=== PATIENT | female | born 1965 | race Caucasian/White ===

== ENCOUNTER 2019-07-29 04:16 | Emergency (ER) | payer BC, OTHER ==
[2019-07-29 04:30] VITALS: TEMP 97.8
[2019-07-29] MEDS ORDERED: HYDROcodone/APAP 5-325MG 1 EACH TAB PO STA (05:02)
[2019-07-29] MEDS ORDERED: IBUPROFEN 600 MG TAB PO STA (05:02)
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
[2019-07-29 06:40] VITALS: BP 160/99; PULSE 80; RESP 17
== END 2019-07-29 06:39 | disposition home or self-care (01) ==
LOC: EC 04:16
DX: S09.90XA Unspecified injury of head, initial encounter (principal); F41.9 Anxiety disorder, unspecified; F32.9 Major depressive disorder, single episode, unspecified; I10 Essential (primary) hypertension; F17.200 Nicotine dependence, unspecified, uncomplicated; Z79.02 Long term (current) use of antithrombotics/antiplatelets; Z79.899 Other long term (current) drug therapy; Z88.2 Allergy status to sulfonamides; Y04.0XXA Assault by unarmed brawl or fight, initial encounter
CPT/HCPCS: 70450; 72125; 93005; 99284

== ENCOUNTER 2019-10-05 01:13 | Emergency (ER) | payer BC, OTHER ==
[2019-10-05 01:41] LABS: Basophils % (A) 0 %; Eosinophils # (A) 0.2 k/uL (0-0.7); Eosinophils % (A) 3 %; HCT 38.1 % (34.0-46.0); HGB 12.9 gm/dL (11.4-16.0); Lymphocytes # (A) 3.4 k/uL (1.0-4.8); Lymphocytes % (A) 46 %; MCH 28.9 pg (25.0-35.0); MCHC 33.7 g/dL (31.0-37.0); MCV 85.7 fL (80.0-100.0); Mean Platelet Volume 7.8; Monocytes # (A) 0.3 k/uL (0-1.0); Monocytes % (A) 4 %; Neutrophils # (A) 3.3 k/uL (1.3-7.7); Neutrophils % (A) 45 %; Platelet Count 198 k/uL (150-450); RBC 4.45 m/uL (3.80-5.40); WBC 7.3 k/uL (3.8-10.6)
--- NOTE | 2019-10-05 01:43 | XR ---
EXAMINATION TYPE: XR chest 2V DATE OF EXAM: 10/05/2019 COMPARISON: NONE HISTORY: Chest pain TECHNIQUE: FINDINGS: There is no heart failure nor confluent pneumonic infiltrate. Costophrenic angles are clear . There are chest leads. Bony thorax is intact. IMPRESSION: No active cardiopulmonary disease.
[2019-10-05] MEDS ORDERED: NITROGLYCERIN OINT 1 INCH/GM PACKET TOPICAL STA (01:49)
[2019-10-05] MEDS ORDERED: MORPHINE SULFATE 4 MG/ML SYRINGE IV STA (01:49)
[2019-10-05 02:03] LABS: Albumin 3.8 g/dL (3.5-5.0); Calcium 8.9 mg/dL (8.4-10.2); Magnesium 1.9 mg/dL (1.6-2.3); Potassium 3.4 mmol/L (3.5-5.1); Total Bilirubin 0.3 mg/dL (0.2-1.3); Total Protein 6.2 g/dL (6.3-8.2)
[2019-10-05 02:05] VITALS: RESP 16
[2019-10-05 02:09] LABS: INR 0.9 (<1.2); Partial Thromboplastin Time 22.6 sec (22.0-30.0); Prothrombin Time 9.5 sec (9.0-12.0)
--- NOTE | 2019-10-05 02:49 | CT ---
EXAMINATION TYPE: CT angio thor/abd pel aorta DATE OF EXAM: 10/05/2019 COMPARISON: None HISTORY: Chest/Back Pain, R/O AAA CT DLP: 1233.40 mGycm Automated exposure control for dose reduction was used. CONTRAST: Performed with IV Contrast, patient injected with 100 mL of Isovue 370. Multiple axial sections were obtained from the thoracic inlet to the floor the pelvis without and sub sequently with intravenous contrast. There are 3-D post processed images. There is no mediastinal adenopathy. There are no hilar masses. Heart size is normal. There is no pina cardial effusion. Thoracic aorta is intact without evidence of aneurysm or dissection. There are no f illing defects in the pulmonary arteries. There is mild pulmonary emphysema. There is minimal subpleural interstitial density in the lungs. No suspicious pulmonary mass. Liver spleen stomach pancreas gallbladder appear normal. Bile ducts are not dilated. There is no adre nal mass. Kidneys show satisfactory contrast opacification. There is no hydronephrosis. Bladder diste nds smoothly. There is no evidence of a pelvic mass. There is no free fluid in the pelvis. There is n o evidence of thickened appendix. There is no mesenteric edema. There is no ascites or free air. There is normal contrast opacification of the abdominal aorta. There is mild atherosclerotic plaque i n the abdominal aorta without significant stenosis. There is patency of the celiac artery and superio r mesenteric artery. There is patency of the renal arteries. There is bilateral patency of the iliac and femoral arteries. There is no evidence of abdominal aortic aneurysm or dissection. There is posterior fusion surgery at L4-5. Thoracic and lumbar vertebra have normal alignment. There is no compression fracture. Bony pelvis appears intact. IMPRESSION: No evidence of aortic aneurysm or dissection. No evidence of pulmonary embolism. No significant ather osclerotic disease. No evidence of hemodynamic stenosis.
[2019-10-05 03:59] VITALS: PULSE 70
[2019-10-05 04:46] VITALS: TEMP 98.5
--- NOTE | 2019-10-05 06:07 | ED ---
Chest Pain HPI - General Chief Complaint: Chest Pain Stated Complaint: Chest pain Time Seen by Provider: 10/05/19 01:18 Source: patient, EMS Mode of arrival: EMS Limitations: no limitations - History of Present Illness Initial Comments: This patient is 54-year-old woman who presents with onset of substernal chest pain that radiates to her back. She described as sharp. She did not identify any worsening or relieving factors. After calling EMS she states that it started to go away. She did receive aspirin and nitroglycerin. She did not have any anginal symptoms, no dyspnea, diaphoresis, nausea or vomiting, palpitations, lightheadedness or syncope. MD Complaint: chest pain -: hour(s) Onset: during rest Pain Location: substernal Pain Radiation: back Severity: moderate Quality: sharp Consistency: now resolved Improves With: nothing Worsens With: nothing Treatments Prior to Arrival: aspirin, nitroglycerin - Related Data Home Medications Medication Instructions Recorded Confirmed Diazepam [Valium] 10 mg PO BID PRN 11/12/15 11/12/15 Potassium 11/12/15 11/12/15 clonazePAM [KlonoPIN] 1 mg PO BID 11/12/15 11/12/15 oxyCODONE HCL [OxyCONTIN] 40 mg PO Q12H PRN 11/12/15 11/12/15 Carvedilol [Coreg] 12.5 mg PO 07/29/19 Isosorbide Mononitrate [Ismo] 0 mg PO DAILY 07/29/19 07/29/19 Allergies Allergy/AdvReac Type Severity Reaction Status Date / Time Sulfa (Sulfonamide Allergy Unknown Verified 07/29/19 04:30 Antibiotics) Review of Systems ROS Statement: Those systems with pertinent positive or pertinent negative responses have been documented in the HPI. ROS Other: All systems not noted in ROS Statement are negative. Constitutional: Denies: fever, chills Respiratory: Denies: cough, dyspnea Cardiovascular: Reports: as per HPI, chest pain. Denies: palpitations, edema, syncope Gastrointestinal: Denies: abdominal pain, nausea, vomiting Genitourinary: Denies: dysuria, hematuria Musculoskeletal: Reports: as per HPI, back pain Skin: Denies: rash Neurological: Denies: headache, weakness, numbness EKG Findings - EKG Results: EKG: interpreted by ERMD, sinus rhythm (Rate 60 bpm), normal axis, normal QRS - Blocks, [place], Hypertrophy, ST Abn: AV and intraventricular conduction: 1 AV block Repolarization changes or abnormalities: nonspecific abnormality, ST segment, and/or T wave Past Medical History Past Medical History: COPD, Diabetes Mellitus, Fibromyalgia, Hyperlipidemia, Hypertension Additional Past Medical History / Comment(s): DJD, Angina, pt reports having a heart attack History of Any Multi-Drug Resistant Organisms: None Reported Past Surgical History: Back Surgery, Hysterectomy, Orthopedic Surgery Additional Past Surgical History / Comment(s): (R) foot surgery x3 with pin and cadavar bone, Past Psychological History: Anxiety, Depression Smoking Status: Current every day smoker Past Alcohol Use History: None Reported Past Drug Use History: None Reported General Exam Limitations: no limitations General appearance: alert, in no apparent distress Head exam: Present: atraumatic, normocephalic Eye exam: Present: normal appearance. Absent: scleral icterus, conjunctival injection ENT exam: Present: normal oropharynx Neck exam: Present: normal inspection Respiratory exam: Present: normal lung sounds bilaterally. Absent: respiratory distress, wheezes, rales, rhonchi, stridor Cardiovascular Exam: Present: regular rate, normal rhythm, normal heart sounds. Absent: systolic murmur, diastolic murmur, rubs, gallop GI/Abdominal exam: Present: soft. Absent: distended, tenderness, guarding, rebound, rigid, mass Extremities exam: Present: normal inspection, normal capillary refill. Absent: pedal edema, calf tenderness Back exam: Present: normal inspection. Absent: CVA tenderness (R), CVA tenderness (L) Neurological exam: Present: alert Skin exam: Present: warm, dry, intact, normal color. Absent: rash Course Vital Signs 10/05/19 10/05/19 10/05/19 01:15 02:04 03:59 Temperature 98.5 F Pulse Rate 60 66 70 Respiratory 22 16 16 Rate Blood Pressure 160/103 144/88 115/73 O2 Sat by Pulse 97 98 98 Oximetry 10/05/19 06:25 Temperature Pulse Rate 70 Respiratory 16 Rate Blood Pressure 120/77 O2 Sat by Pulse 100 Oximetry Chest Pain MDM - MDM This patient is a 54-year-old woman presenting with chest pain radiating to the back as well as marked hypertension. For this reason she did have cardiac workup including CT angiogram. The workup is negative. I did discuss admission for serial crack enzymes, telemetry monitoring and cardiology consultation with patient would rather go home. She did agree to stay for second set of cardiac enzymes and this was negative as well. I did discuss the appropriate further care and follow-up as well as return parameters. Disposition Clinical Impression: Chest pain Disposition: HOME SELF-CARE Condition: Good Instructions (If sedation given, give patient instructions): Chest Pain (ED) Additional Instructions: As we discussed, follow-up with your doctor to consider having a HIDA scan scheduled and also possible upper endoscopy. Is patient prescribed a controlled substance at d/c from ED?: No Referrals: Nonstaff,Physician [Primary Care Provider] - 1-2 days Mario Alberto Brewster MD [STAFF PHYSICIAN] - 1-2 days
[2019-10-05 06:25] VITALS: BP 120/77
== END 2019-10-05 06:28 | disposition home or self-care (01) ==
LOC: EC 01:13
DX: R07.89 Other chest pain (principal); I10 Essential (primary) hypertension; E11.9 Type 2 diabetes mellitus without complications; F41.9 Anxiety disorder, unspecified; F32.9 Major depressive disorder, single episode, unspecified; F17.200 Nicotine dependence, unspecified, uncomplicated; I25.2 Old myocardial infarction; Z79.02 Long term (current) use of antithrombotics/antiplatelets; Z79.899 Other long term (current) drug therapy; Z88.2 Allergy status to sulfonamides
CPT/HCPCS: 36415; 93005; 80053; 82150; 83690; 83735; 84484; 85025; 85610; 85730; 71046; 71275; 74174; 99285; 96374; J2270; Q9967

== ENCOUNTER 2020-06-22 13:15 | Emergency (ER) | payer BC, OTHER ==
[2020-06-22] MEDS ORDERED: ONDANSETRON 4 MG/2 ML VIAL IVP STA (13:44)
[2020-06-22] MEDS ORDERED: SODIUM CHLORIDE 0.9% 2,000 ML IV STA (13:44)
[2020-06-22] MEDS ORDERED: MORPHINE SULFATE 4 MG/ML SYRINGE IVP STA (13:44)
[2020-06-22 14:10] LABS: Basophils % (A) 0 %; Eosinophils # (A) 0.2 k/uL (0-0.7); Eosinophils % (A) 1 %; HCT 42.2 % (34.0-46.0); HGB 14.6 gm/dL (11.4-16.0); Lymphocytes # (A) 1.3 k/uL (1.0-4.8); Lymphocytes % (A) 9 %; MCH 29.7 pg (25.0-35.0); MCHC 34.6 g/dL (31.0-37.0); Mean Platelet Volume 7.2; Monocytes % (A) 7 %; Neutrophils # (A) 11.7 k/uL (1.3-7.7); Neutrophils % (A) 82 %; Platelet Count 175 k/uL (150-450); RBC 4.91 m/uL (3.80-5.40); RDW 13.3 % (11.5-15.5); WBC 14.2 k/uL (3.8-10.6)
--- NOTE | 2020-06-22 14:11 | ED ---
Abdominal Pain HPI - General Chief Complaint: Abdominal Pain Stated Complaint: abd pain Time Seen by Provider: 06/22/20 13:24 Source: patient Mode of arrival: ambulatory Limitations: no limitations - History of Present Illness Initial Comments: 55-year-old female resenting to the emergency department with a chief complaint of abdominal pain. Patient reports the pain started about one week ago and has been progressively increasing in severity over the last 3 days. Patient states she has had decreased urine production for about one week. She does report nausea and 1 episode of nonbilious nonbloody vomiting today. Patient reports most of the pain is located in the lower abdominal region and it is sharp in nature. She denies dysuria or increased frequency but does report urgency. States she has been drinking plenty of fluids and taking vitamins to help with the discomfort. She denies any vaginal symptoms. Does report bilateral flank pain as well. Denies any night sweats fevers or chills. Denies any chest pain or shortness of breath. Does report previous surgical history of a hysterectomy. - Related Data Home Medications Medication Instructions Recorded Confirmed Albuterol Inhaler [Ventolin Hfa 1 - 2 puff INHALATION RT-QID PRN 06/22/20 06/22/20 Inhaler] Budesonide/Formoterol Fumarate 2 puff INHALATION RT-BID 06/22/20 06/22/20 [Symbicort 160-4.5 Mcg Inhaler] Buprenorphine HCl/Naloxone HCl 1 film SL BID 06/22/20 06/22/20 [Suboxone 8 mg-2 mg Sl Film] Carvedilol [Coreg] 25 mg PO TID 06/22/20 06/22/20 Doxylamine Succinate [Unisom] 25 mg PO HS 06/22/20 06/22/20 Ergocalciferol [Vitamin D2] 50,000 unit PO FR 06/22/20 06/22/20 Isosorbide Mononitrate ER [Imdur] 30 mg PO HS 06/22/20 06/22/20 Isosorbide Mononitrate ER [Imdur] 60 mg PO BID 06/22/20 06/22/20 QUEtiapine [SEROquel] 100 mg PO HS 06/22/20 06/22/20 Simvastatin 40 mg PO HS 06/22/20 06/22/20 Tiotropium [place] [Spiriva 1 puff INHALATION RT-DAILY 06/22/20 06/22/20 Respimat] amLODIPine [Norvasc] 5 mg PO BID 06/22/20 06/22/20 hydrALAZINE HCL [Apresoline] 25 mg PO TID 06/22/20 06/22/20 Allergies Allergy/AdvReac Type Severity Reaction Status Date / Time Sulfa (Sulfonamide Allergy Anaphylaxis Verified 06/22/20 14:41 Antibiotics) Review of Systems ROS Statement: Those systems with pertinent positive or pertinent negative responses have been documented in the HPI. ROS Other: All systems not noted in ROS Statement are negative. Past Medical History Past Medical History: COPD, Diabetes Mellitus, Fibromyalgia, Hyperlipidemia, Hypertension Additional Past Medical History / Comment(s): DJD, Angina, pt reports having a heart attack History of Any Multi-Drug Resistant Organisms: None Reported Past Surgical History: Back Surgery, Hysterectomy, Orthopedic Surgery Additional Past Surgical History / Comment(s): (R) foot surgery x3 with pin and cadavar bone, Past Psychological History: Anxiety, Depression Smoking Status: Current every day smoker Past Alcohol Use History: Occasional Past Drug Use History: None Reported General Exam Limitations: no limitations General appearance: alert, in no apparent distress Head exam: Present: atraumatic, normocephalic, normal inspection Eye exam: Present: normal appearance, PERRL, EOMI Pupils: Present: normal accommodation ENT exam: Present: normal exam, normal oropharynx, mucous membranes moist, TM's normal bilaterally, normal external ear exam Neck exam: Present: normal inspection, full ROM. Absent: tenderness Respiratory exam: Present: normal lung sounds bilaterally. Absent: respiratory distress, wheezes, rales Cardiovascular Exam: Present: regular rate, normal rhythm, normal heart sounds. Absent: systolic murmur, diastolic murmur GI/Abdominal exam: Present: soft, tenderness (Lower abdominal tenderness. ). Absent: distended, guarding, rebound Extremities exam: Present: normal inspection, full ROM, normal capillary refill. Absent: tenderness, pedal edema, joint swelling, calf tenderness Back exam: Present: normal inspection, full ROM, tenderness, CVA tenderness (R). Absent: CVA tenderness (L), muscle spasm, paraspinal tenderness, vertebral tenderness Neurological exam: Present: alert, oriented X3, normal gait Psychiatric exam: Present: normal affect, normal mood Skin exam: Present: warm, dry, intact, normal color Course Vital Signs 06/22/20 13:16 Temperature 97.1 F L Pulse Rate 82 Respiratory 18 Rate Blood Pressure 164/98 O2 Sat by Pulse 98 Oximetry Medical Decision Making - Medical Decision Making 29-year-old female presenting to the emergency department with a chief complaint of abdominal pain. On physical examination patient does have lower abdominal p ain with right CVA tenderness. She did have nausea vomiting. Patient was given IV fluids, analgesia and antiemetics. On reevaluation, patient reports improved his symptoms. CBC revealed leukocytosis of 14.2. CMP reveals decreased renal function. BUN of 18. Significant increase in creatinine c ompared to last laboratory work from 8 months ago. Creatinine is 2.88. UA is unremarkable. Patient was given 2 L of IV bolus fluids. Patient advised to follow-up with a primary care physician and credit operations processor. She was also given a prescription for repeat laboratory work in the morning. Patient was offered admission, she declined. Strict return parameters were thoroughly discussed with patient was standing agreeable. Case discussed with physician. - Lab Data Result diagrams: 06/22/20 13:46 06/22/20 13:46 Lab Results 06/22/20 06/22/20 06/22/20 Range/Units 13:46 13:46 13:46 WBC 14.2 H (3.8-10.6) k/uL RBC 4.91 (3.80-5.40) m/uL Hgb 14.6 (11.4-16.0) gm/dL Hct 42.2 (34.0-46.0) % MCV 86.0 (80.0-100.0) fL MCH 29.7 (25.0-35.0) pg MCHC 34.6 (31.0-37.0) g/dL RDW 13.3 (11.5-15.5) % Plt Count 175 (150-450) k/uL MPV 7.2 Neutrophils % 82 % Lymphocytes % 9 % Monocytes % 7 % Eosinophils % 1 % Basophils % 0 % Neutrophils # 11.7 H (1.3-7.7) k/uL Lymphocytes # 1.3 (1.0-4.8) k/uL Monocytes # 1.0 (0-1.0) k/uL Eosinophils # 0.2 (0-0.7) k/uL Basophils # 0.0 (0-0.2) k/uL Sodium 134 L (137-145) mmol/L Potassium 3.9 (3.5-5.1) mmol/L Chloride 101 (98-107) mmol/L Carbon Dioxide 24 (22-30) mmol/L Anion Gap 9 mmol/L BUN 18 H (7-17) mg/dL Creatinine 2.88 H (0.52-1.04) mg/dL Est GFR (CKD-EPI)AfAm 20 (>60 ml/min/1.73 sqM) Est GFR (CKD-EPI)NonAf 18 (>60 ml/min/1.73 sqM) Glucose 133 H (74-99) mg/dL Calcium 9.5 (8.4-10.2) mg/dL Total Bilirubin 0.7 (0.2-1.3) mg/dL AST 29 (14-36) U/L ALT 13 (4-34) U/L Alkaline Phosphatase 88 (38-126) U/L Total Protein 6.9 (6.3-8.2) g/dL Albumin 4.0 (3.5-5.0) g/dL Amylase 42 (30-110) U/L Lipase 37 (23-300) U/L Urine Color Light Yellow Urine Appearance Clear (Clear) Urine pH 5.5 (5.0-8.0) Ur Specific [place] 1.006 (1.001-1.035) Urine Protein Trace H (Negative) Urine Glucose (UA) Negative (Negative) Urine Ketones Negative (Negative) Urine Blood Negative (Negative) Urine Nitrite Negative (Negative) Urine Bilirubin Negative (Negative) Urine Urobilinogen <2.0 (<2.0) mg/dL Ur Leukocyte Esterase Negative (Negative) Urine HCG, Qual (Not Detectd) 06/22/20 Range/Units 13:46 WBC (3.8-10.6) k/uL RBC (3.80-5.40) m/uL Hgb (11.4-16.0) gm/dL Hct (34.0-46.0) % MCV (80.0-100.0) fL MCH (25.0-35.0) pg MCHC (31.0-37.0) g/dL RDW (11.5-15.5) % Plt Count (150-450) k/uL MPV Neutrophils % % Lymphocytes % % Monocytes % % Eosinophils % % Basophils % % Neutrophils # (1.3-7.7) k/uL Lymphocytes # (1.0-4.8) k/uL Monocytes # (0-1.0) k/uL Eosinophils # (0-0.7) k/uL Basophils # (0-0.2) k/uL Sodium (137-145) mmol/L Potassium (3.5-5.1) mmol/L Chloride (98-107) mmol/L Carbon Dioxide (22-30) mmol/L Anion Gap mmol/L BUN (7-17) mg/dL Creatinine (0.52-1.04) mg/dL Est GFR (CKD-EPI)AfAm (>60 ml/min/1.73 sqM) Est GFR (CKD-EPI)NonAf (>60 ml/min/1.73 sqM) Glucose (74-99) mg/dL Calcium (8.4-10.2) mg/dL Total Bilirubin (0.2-1.3) mg/dL AST (14-36) U/L ALT (4-34) U/L Alkaline Phosphatase (38-126) U/L Total Protein (6.3-8.2) g/dL Albumin (3.5-5.0) g/dL Amylase (30-110) U/L Lipase (23-300) U/L Urine Color Urine Appearance (Clear) Urine pH (5.0-8.0) Ur Specific [place] (1.001-1.035) Urine Protein (Negative) Urine Glucose (UA) (Negative) Urine Ketones (Negative) Urine Blood (Negative) Urine Nitrite (Negative) Urine Bilirubin (Negative) Urine Urobilinogen (<2.0) mg/dL Ur Leukocyte Esterase (Negative) Urine HCG, Qual Not Detected (Not Detectd) - EKG Data EKG Comments: Sinus rhythm Ventricular rate 78, CT 194, QRS 90, QTc 420. Disposition Clinical Impression: Acute kidney injury, Dehydration Disposition: HOME SELF-CARE Condition: Stable Instructions (If sedation given, give patient instructions): Dehydration (ED) Additional Instructions: Repeat laboratory work tomorrow. Follow with the primary care physician in the next 1-2 days. Return to emergency department if symptoms worsen. Is patient prescribed a controlled substance at d/c from ED?: No Referrals: Diego Beltran MD [Primary Care Provider] - 1-2 days Matthias Degroot DO [STAFF PHYSICIAN] - 1-2 days Time of Disposition: 15:42
[2020-06-22 14:21] LABS: Calcium 9.5 mg/dL (8.4-10.2); Potassium 3.9 mmol/L (3.5-5.1); Total Bilirubin 0.7 mg/dL (0.2-1.3); Total Protein 6.9 g/dL (6.3-8.2)
[2020-06-22 14:49] LABS: Appearance,Urine Clear (Clear); Bilirubin,Urine Negative (Negative); Color,Urine Light Yellow; Glucose,Urine (UA) Negative (Negative); Ketones,Urine Negative (Negative); PH, Urine 5.5 (5.0-8.0); Protein,Urine Trace (Negative); Specific Gravity,Urine 1.006 (1.001-1.035)
[2020-06-22 14:50] LABS: Blood,Urine Negative (Negative); Leukocyte Esterase,Urine Negative (Negative); Nitrite,Urine Negative (Negative); Urobilinogen,Urine <2.0 mg/dL (<2.0)
[2020-06-22] MEDS ORDERED: ACETAMINOPHEN TAB 500 MG TAB PO STA (16:04)
[2020-06-22] MEDS ORDERED: ACET/COD 300 MG/30 MG STARTER PACK 6 TAB BTL PO STA (16:16)
[2020-06-22 16:49] VITALS: BP 124/78; PULSE 78; RESP 16; TEMP 97.8
== END 2020-06-22 16:48 | disposition home or self-care (01) ==
LOC: EC 13:15
DX: N17.9 Acute kidney failure, unspecified (principal); E86.0 Dehydration; D72.829 Elevated white blood cell count, unspecified; F41.9 Anxiety disorder, unspecified; F32.9 Major depressive disorder, single episode, unspecified; F17.200 Nicotine dependence, unspecified, uncomplicated; J44.9 Chronic obstructive pulmonary disease, unspecified; E78.5 Hyperlipidemia, unspecified; I10 Essential (primary) hypertension; Z79.51 Long term (current) use of inhaled steroids; Z79.899 Other long term (current) drug therapy; Z88.2 Allergy status to sulfonamides
CPT/HCPCS: 36415; 80053; 81003; 81025; 82150; 83690; 85025; 93005; 96361; 96374; 96375; 99284

== ENCOUNTER 2020-06-23 09:30 | Inpatient (IN) | payer BC, OTHER ==
[2020-06-23] MEDS ORDERED: SODIUM CHLORIDE 0.9% 1,000 ML IV STA (09:58)
[2020-06-23 10:28] LABS: Basophils % (A) 0 %; Eosinophils # (A) 0.2 k/uL (0-0.7); Eosinophils % (A) 1 %; HCT 39.7 % (34.0-46.0); HGB 13.4 gm/dL (11.4-16.0); Lymphocytes # (A) 1.6 k/uL (1.0-4.8); Lymphocytes % (A) 14 %; MCH 29.5 pg (25.0-35.0); MCHC 33.8 g/dL (31.0-37.0); MCV 87.3 fL (80.0-100.0); Mean Platelet Volume 7.2; Monocytes # (A) 0.6 k/uL (0-1.0); Monocytes % (A) 5 %; Neutrophils # (A) 8.8 k/uL (1.3-7.7); Neutrophils % (A) 78 %; Platelet Count 181 k/uL (150-450); RBC 4.55 m/uL (3.80-5.40); RDW 13.6 % (11.5-15.5); WBC 11.3 k/uL (3.8-10.6)
[2020-06-23 10:49] LABS: Albumin 3.7 g/dL (3.5-5.0); Calcium 8.8 mg/dL (8.4-10.2); Potassium 3.8 mmol/L (3.5-5.1); Total Bilirubin 0.5 mg/dL (0.2-1.3); Total Protein 6.3 g/dL (6.3-8.2)
[2020-06-23 10:50] LABS: Appearance,Urine Clear (Clear); Bilirubin,Urine Negative (Negative); Blood,Urine Negative (Negative); Color,Urine Light Yellow; Glucose,Urine (UA) Negative (Negative); Ketones,Urine Negative (Negative); Leukocyte Esterase,Urine Negative (Negative); Nitrite,Urine Negative (Negative); PH, Urine 5.5 (5.0-8.0); Protein,Urine Negative (Negative); Specific Gravity,Urine 1.005 (1.001-1.035); Urobilinogen,Urine <2.0 mg/dL (<2.0)
--- NOTE | 2020-06-23 11:22 | CT ---
EXAMINATION TYPE: CT abdomen pelvis wo con DATE OF EXAM: 06/23/2020 COMPARISON: None HISTORY: RLQ pain with nausea. CT DLP: 484.4 mGycm Examination of the solid and hollow viscera is limited given the lack of contrast. FINDINGS: LUNG BASES: No evidence for nodule. No evidence for infiltrate. LIVER/GB: The gallbladder is unremarkable. No space-occupying hepatic lesion. PANCREAS: No pancreatic mass identified. No inflammatory process seen. SPLEEN: No evidence for splenomegaly. No intrasplenic lesions seen. ADRENALS: No adrenal nodules identified. No evidence for thickening. KIDNEYS: No evidence for renal mass. No nephrolithiasis. No hydronephrosis. BOWEL: Dilated and inflamed appendix measuring up to 1.4 cm with surrounding periappendiceal inflamma tory change. Focus of internal air noted. No free air or abscess visible. Small amount of free fluid within the pelvis. No evidence of bowel obstruction. No inflammatory process. Lymph nodes: No evidence for adenopathy greater than 1 cm. Abdominal aorta: Atheromatous changes seen. No evidence for aneurysm. Genital organs: No significant abnormality. Other: Postsurgical changes lumbar spine. IMPRESSION: 1. Findings compatible with acute appendicitis.
[2020-06-23] MEDS ORDERED: PIPERACILLIN-TAZOBACTAM 3.375 GM in SODIUM CHLORIDE 0.9% 100 ML IVPB STA (11:41)
[2020-06-23] MEDS ORDERED: ONDANSETRON 4 MG/2 ML VIAL IVP STA (11:41)
[2020-06-23] MEDS ORDERED: HYDROmorphone 0.5 MG/0.5 ML SYRINGE IVP STA (11:41)
--- NOTE | 2020-06-23 11:43 | ED ---
Abdominal Pain HPI - General Chief Complaint: Abdominal Pain Stated Complaint: Kidney Pain/here yesterday Time Seen by Provider: 06/23/20 09:38 Source: patient, RN notes reviewed Mode of arrival: ambulatory Limitations: no limitations - History of Present Illness Initial Comments: 55-year-old female presents emergency department for recheck abdominal pain, kidney problems. Patient presented yesterday for right-sided abdominal pain in which she had lab work found to have acute kidney injury. Patient left AGAINST MEDICAL ADVICE. Patient comes back today worsening symptoms. Patient states she did have an episode of nausea vomiting. Patient states that no fierce that she just does not feel well. Patient does take Motrin or regular basis. Jenniffer ent checked not too which she states she has not. Patient denies any chest pain or current shortness of breath. - Related Data Home Medications Medication Instructions Recorded Confirmed Albuterol Inhaler [Ventolin Hfa 1 - 2 puff INHALATION RT-QID PRN 06/22/20 Inhaler] Budesonide/Formoterol Fumarate 2 puff INHALATION RT-BID 06/22/20 06/22/20 [Symbicort 160-4.5 Mcg Inhaler] Buprenorphine HCl/Naloxone HCl 1 film SL BID 06/22/20 06/22/20 [Suboxone 8 mg-2 mg Sl Film] Carvedilol [Coreg] 25 mg PO TID 06/22/20 06/22/20 Doxylamine Succinate [Unisom] 25 mg PO HS 06/22/20 06/22/20 Ergocalciferol [Vitamin D2] 50,000 unit PO FR 06/22/20 06/22/20 Isosorbide Mononitrate ER [Imdur] 30 mg PO HS 06/22/20 06/22/20 Isosorbide Mononitrate ER [Imdur] 60 mg PO BID 06/22/20 06/22/20 QUEtiapine [SEROquel] 100 mg PO HS 06/22/20 06/22/20 Simvastatin 40 mg PO HS 06/22/20 06/22/20 Tiotropium [place] [Spiriva 1 puff INHALATION RT-DAILY 06/22/20 06/22/20 Respimat] amLODIPine [Norvasc] 5 mg PO BID 06/22/20 06/22/20 hydrALAZINE HCL [Apresoline] 25 mg PO TID 06/22/20 06/22/20 Allergies Allergy/AdvReac Type Severity Reaction Status Date / Time Sulfa (Sulfonamide Allergy Anaphylaxis Verified 06/23/20 09:35 Antibiotics) Review of Systems ROS Statement: Those systems with pertinent positive or pertinent negative responses have been documented in the HPI. ROS Other: All systems not noted in ROS Statement are negative. Past Medical History Past Medical History: COPD, Diabetes Mellitus, Fibromyalgia, Hyperlipidemia, Hypertension Additional Past Medical History / Comment(s): DJD, Angina, pt reports having a heart attack History of Any Multi-Drug Resistant Organisms: None Reported Past Surgical History: Back Surgery, Hysterectomy, Orthopedic Surgery Additional Past Surgical History / Comment(s): (R) foot surgery x3 with pin and cadavar bone, Past Psychological History: Anxiety, Depression Smoking Status: Current every day smoker Past Alcohol Use History: Occasional Past Drug Use History: None Reported General Exam Limitations: no limitations General appearance: alert, in no apparent distress Head exam: Present: atraumatic, normocephalic, normal inspection Respiratory exam: Present: normal lung sounds bilaterally. Absent: respiratory distress, wheezes, rales, rhonchi, stridor Cardiovascular Exam: Present: regular rate, normal rhythm, normal heart sounds. Absent: systolic murmur, diastolic murmur, rubs, gallop, clicks GI/Abdominal exam: Present: soft, tenderness (Moderate right lower quadrant te nderness), rebound, normal bowel sounds. Absent: distended, guarding, rigid Back exam: Absent: CVA tenderness (R), CVA tenderness (L) Neurological exam: Present: alert, oriented X3, CN II-XII intact Skin exam: Present: warm, dry, intact, normal color. Absent: rash Course Vital Signs 06/23/20 09:32 Temperature 98.1 F Pulse Rate 81 Respiratory 18 Rate Blood Pressure 151/84 O2 Sat by Pulse 96 Oximetry Medical Decision Making - Medical Decision Making Case discussed with Dr. Wilhelm immigration investigator for surgery. Patient was placed on antibiotics. Patient will be admitted for surgery with consult to medicine and nephrology. - Lab Data Result diagrams: 06/23/20 10:03 06/23/20 10:03 Lab Results 06/23/20 06/23/20 06/23/20 Range/Units 10:03 10:03 10:03 WBC 11.3 H (3.8-10.6) k/uL RBC 4.55 (3.80-5.40) m/uL Hgb 13.4 (11.4-16.0) gm/dL Hct 39.7 (34.0-46.0) % MCV 87.3 (80.0-100.0) fL MCH 29.5 (25.0-35.0) pg MCHC 33.8 (31.0-37.0) g/dL RDW 13.6 (11.5-15.5) % Plt Count 181 (150-450) k/uL MPV 7.2 Neutrophils % 78 % Lymphocytes % 14 % Monocytes % 5 % Eosinophils % 1 % Basophils % 0 % Neutrophils # 8.8 H (1.3-7.7) k/uL Lymphocytes # 1.6 (1.0-4.8) k/uL Monocytes # 0.6 (0-1.0) k/uL Eosinophils # 0.2 (0-0.7) k/uL Basophils # 0.0 (0-0.2) k/uL Sodium 140 (137-145) mmol/L Potassium 3.8 (3.5-5.1) mmol/L Chloride 107 (98-107) mmol/L Carbon Dioxide 26 (22-30) mmol/L Anion Gap 7 mmol/L BUN 19 H (7-17) mg/dL Creatinine 3.22 H (0.52-1.04) mg/dL Est GFR (CKD-EPI)AfAm 18 (>60 ml/min/1.73 sqM) Est GFR (CKD-EPI)NonAf 15 (>60 ml/min/1.73 sqM) Glucose 118 H (74-99) mg/dL Plasma Lactic Acid Wilian (0.7-2.0) mmol/L Calcium 8.8 (8.4-10.2) mg/dL Total Bilirubin 0.5 (0.2-1.3) mg/dL AST 27 (14-36) U/L ALT 13 (4-34) U/L Alkaline Phosphatase 82 (38-126) U/L Total Protein 6.3 (6.3-8.2) g/dL Albumin 3.7 (3.5-5.0) g/dL Amylase 39 (30-110) U/L Lipase 37 (23-300) U/L Urine Color Light Yellow Urine Appearance Clear (Clear) Urine pH 5.5 (5.0-8.0) Ur Specific [place] 1.005 (1.001-1.035) Urine Protein Negative (Negative) Urine Glucose (UA) Negative (Negative) Urine Ketones Negative (Negative) Urine Blood Negative (Negative) Urine Nitrite Negative (Negative) Urine Bilirubin Negative (Negative) Urine Urobilinogen <2.0 (<2.0) mg/dL Ur Leukocyte Esterase Negative (Negative) 06/23/20 Range/Units 10:03 WBC (3.8-10.6) k/uL RBC (3.80-5.40) m/uL Hgb (11.4-16.0) gm/dL Hct (34.0-46.0) % MCV (80.0-100.0) fL MCH (25.0-35.0) pg MCHC (31.0-37.0) g/dL RDW (11.5-15.5) % Plt Count (150-450) k/uL MPV Neutrophils % % Lymphocytes % % Monocytes % % Eosinophils % % Basophils % % Neutrophils # (1.3-7.7) k/uL Lymphocytes # (1.0-4.8) k/uL Monocytes # (0-1.0) k/uL Eosinophils # (0-0.7) k/uL Basophils # (0-0.2) k/uL Sodium (137-145) mmol/L Potassium (3.5-5.1) mmol/L Chloride (98-107) mmol/L Carbon Dioxide (22-30) mmol/L Anion Gap mmol/L BUN (7-17) mg/dL Creatinine (0.52-1.04) mg/dL Est GFR (CKD-EPI)AfAm (>60 ml/min/1.73 sqM) Est GFR (CKD-EPI)NonAf (>60 ml/min/1.73 sqM) Glucose (74-99) mg/dL Plasma Lactic Acid Wilian 0.8 (0.7-2.0) mmol/L Calcium (8.4-10.2) mg/dL Total Bilirubin (0.2-1.3) mg/dL AST (14-36) U/L ALT (4-34) U/L Alkaline Phosphatase (38-126) U/L Total Protein (6.3-8.2) g/dL Albumin (3.5-5.0) g/dL Amylase (30-110) U/L Lipase (23-300) U/L Urine Color Urine Appearance (Clear) Urine pH (5.0-8.0) Ur Specific [place] (1.001-1.035) Urine Protein (Negative) Urine Glucose (UA) (Negative) Urine Ketones (Negative) Urine Blood (Negative) Urine Nitrite (Negative) Urine Bilirubin (Negative) Urine Urobilinogen (<2.0) mg/dL Ur Leukocyte Esterase (Negative) Disposition Clinical Impression: Acute appendicitis, Acute renal failure Disposition: ADMITTED IP TO THIS HOSP Condition: Fair Referrals: Diego Beltran MD [Primary Care Provider] - 1-2 days
[2020-06-23] MEDS ORDERED: HYDROmorphone 0.5 MG/0.5 ML SYRINGE IVP PRN (12:39)
[2020-06-23] MEDS ORDERED: NALOXONE 0.4 MG/ML 1 ML VIAL IV PRN (12:39)
[2020-06-23] MEDS ORDERED: ONDANSETRON 4 MG/2 ML VIAL IVP PRN (12:39)
[2020-06-23] MEDS: SODIUM CHLORIDE 0.9% 1,000 ML IV SCH ×2 (13:04→23:31)
[2020-06-23] MEDS ORDERED: PROPOFOL 10 MG/ML 20 ML VIAL IV ONE (13:37)
[2020-06-23] MEDS ORDERED: NEOSTIGMINE 1 MG/ML 10 ML VIAL ONE (13:37)
[2020-06-23] MEDS ORDERED: fentaNYL (PF) 50 MCG/ML 2 ML AMP ONE (13:37)
[2020-06-23] MEDS ORDERED: LIDOCAINE 1% INJ 10MG/ML (20 ML MDV) ONE (13:37)
[2020-06-23] MEDS ORDERED: GLYCOPYRROLATE 0.2 MG/ML 2 ML VIAL ONE (13:37)
[2020-06-23] MEDS ORDERED: SUCCINYLCHOLINE CHLORIDE 100 MG/5 ML SYR IV ONE (13:37)
[2020-06-23] MEDS ORDERED: LACTATED RINGERS 1,000 ML IV ONE (13:37)
[2020-06-23] MEDS ORDERED: MIDAZOLAM 2 MG/2 ML VIAL ONE (13:37)
[2020-06-23] MEDS ORDERED: ROCURONIUM 10 MG/ML (10 ML VIAL) IV ONE (13:37)
--- NOTE | 2020-06-23 13:40 | P.GSHP ---
History of Present Illness H&P Date: 06/23/20 55-year-old female presented to the emergency department with complaints of abdominal pain. She apparently presented yesterday and admission was recommended to the patient, however she did decline. She states that she has been having abdominal pain for the past few days. She states that most of the pain is in the right lower quadrant. She also complains of nausea episodes but denies any emesis. She complains of lack of appetite. On workup yesterday, concern was for acute kidney injury. Today, the patient did undergo further workup with CT of the abdomen and pelvis. CT is concerning for acute appendicitis with a significantly dilated appendix at 1.4 cm along with surrounding periappendiceal fat stranding. She denies any fevers, chills, chest pain or shortness of breath. - Review of Systems All systems: negative Past Medical History Past Medical History: COPD, Diabetes Mellitus, Fibromyalgia, Hyperlipidemia, Hypertension Additional Past Medical History / Comment(s): DJD, Angina, pt reports having a heart attack History of Any Multi-Drug Resistant Organisms: None Reported Past Surgical History: Back Surgery, Hysterectomy, Orthopedic Surgery Additional Past Surgical History / Comment(s): (R) foot surgery x3 with pin and cadavar bone, Past Psychological History: Anxiety, Depression Smoking Status: Current every day smoker Past Alcohol Use History: Occasional Past Drug Use History: None Reported Medications and Allergies Home Medications Medication Instructions Recorded Confirmed Type Albuterol Inhaler [Ventolin Hfa 1 - 2 puff INHALATION RT-QID PRN 06/22/20 06/23/20 History Inhaler] Budesonide/Formoterol Fumarate 2 puff INHALATION RT-BID 06/22/20 06/23/20 History [Symbicort 160-4.5 Mcg Inhaler] Buprenorphine HCl/Naloxone HCl 1 film SL BID 06/22/20 06/23/20 History [Suboxone 8 mg-2 mg Sl Film] Carvedilol [Coreg] 25 mg PO TID 06/22/20 06/23/20 History Doxylamine Succinate [Unisom] 25 mg PO HS 06/22/20 06/23/20 History Ergocalciferol [Vitamin D2] 50,000 unit PO FR 06/22/20 06/23/20 History Isosorbide Mononitrate ER [Imdur] 30 mg PO HS 06/22/20 06/23/20 History Isosorbide Mononitrate ER [Imdur] 60 mg PO BID 06/22/20 06/23/20 History QUEtiapine [SEROquel] 100 mg PO HS 06/22/20 06/23/20 History Simvastatin 40 mg PO HS 06/22/20 06/23/20 History Tiotropium [place] [Spiriva 1 puff INHALATION RT-DAILY 06/22/20 06/23/20 History Respimat] amLODIPine [Norvasc] 5 mg PO BID 06/22/20 06/23/20 History hydrALAZINE HCL [Apresoline] 25 mg PO TID 06/22/20 06/23/20 History Acetaminophen-Codeine 300-30mg 1 tab PO ONCE PRN 06/23/20 06/23/20 History [Tylenol w/codeine #3] Allergies Allergy/AdvReac Type Severity Reaction Status Date / Time Sulfa (Sulfonamide Allergy Anaphylaxis Verified 06/23/20 13:07 Antibiotics) Surgical - Exam Osteopathic Statement: *. No significant issues noted on an osteopathic struct ural exam other than those noted in the History and Physical/Consult. Vital Signs Temp Pulse Resp BP Pulse Ox 98.1 F 81 18 151/84 96 06/23/20 09:32 06/23/20 09:32 06/23/20 09:32 06/23/20 09:32 06/23/20 09:32 - General well nourished, no distress - Eyes PERRL - ENT no hearing loss - Neck trachea midline - Respiratory normal respiratory effort - Abdomen Soft, tender to palpation in the right lower quadrant, nondistended, no rebound, no guarding - Psychiatric oriented to time, oriented to person, oriented to place Results - Labs 06/23/20 10:03 06/23/20 10:03 Abnormal Lab Results - Last 24 Hours (Table) 06/23/20 06/23/20 Range/Units 10:03 10:03 WBC 11.3 H (3.8-10.6) k/uL Neutrophils # 8.8 H (1.3-7.7) k/uL BUN 19 H (7-17) mg/dL Creatinine 3.22 H (0.52-1.04) mg/dL Glucose 118 H (74-99) mg/dL Diabetes panel 06/23/20 Range/Units 10:03 Sodium 140 (137-145) mmol/L Potassium 3.8 (3.5-5.1) mmol/L Chloride 107 (98-107) mmol/L Carbon Dioxide 26 (22-30) mmol/L BUN 19 H (7-17) mg/dL Creatinine 3.22 H (0.52-1.04) mg/dL Glucose 118 H (74-99) mg/dL Calcium 8.8 (8.4-10.2) mg/dL AST 27 (14-36) U/L ALT 13 (4-34) U/L Alkaline Phosphatase 82 (38-126) U/L Total Protein 6.3 (6.3-8.2) g/dL Albumin 3.7 (3.5-5.0) g/dL Calcium panel 06/23/20 Range/Units 10:03 Calcium 8.8 (8.4-10.2) mg/dL Albumin 3.7 (3.5-5.0) g/dL Pituitary panel 06/23/20 Range/Units 10:03 Sodium 140 (137-145) mmol/L Potassium 3.8 (3.5-5.1) mmol/L Chloride 107 (98-107) mmol/L Carbon Dioxide 26 (22-30) mmol/L BUN 19 H (7-17) mg/dL Creatinine 3.22 H (0.52-1.04) mg/dL Glucose 118 H (74-99) mg/dL Calcium 8.8 (8.4-10.2) mg/dL Adrenal panel 06/23/20 Range/Units 10:03 Sodium 140 (137-145) mmol/L Potassium 3.8 (3.5-5.1) mmol/L Chloride 107 (98-107) mmol/L Carbon Dioxide 26 (22-30) mmol/L BUN 19 H (7-17) mg/dL Creatinine 3.22 H (0.52-1.04) mg/dL Glucose 118 H (74-99) mg/dL Calcium 8.8 (8.4-10.2) mg/dL Total Bilirubin 0.5 (0.2-1.3) mg/dL AST 27 (14-36) U/L ALT 13 (4-34) U/L Alkaline Phosphatase 82 (38-126) U/L Total Protein 6.3 (6.3-8.2) g/dL Albumin 3.7 (3.5-5.0) g/dL - Imaging CT scan - abdomen: report reviewed, image reviewed CT scan - pelvis: report reviewed, image reviewed (Dilated appendix, periappendiceal fat stranding) Assessment and Plan Plan: 55-year-old female with acute appendicitis. The patient was started on IV antibiotics in the emergency department. Keep the patient nothing by mouth. We'll plan for laparoscopic appendectomy. This was all discussed with the patient. Risks, benefits and alternatives to the procedure were provided to the patient. The patient did provide consent for the operation. Further niyah mmendations will be made after the procedure.
[2020-06-23] MEDS ORDERED: BUPIVACAINE (PF) 0.25% 30 ML VIAL SQ ONE ×2 (13:57→14:32)
--- NOTE | 2020-06-23 14:42 | P.OP ---
Date of Procedure: 06/23/20 Preoperative Diagnosis: Acute appendicitis Postoperative Diagnosis: Ruptured appendicitis Procedure(s) Performed: Laparoscopic appendectomy Anesthesia: PRANAV Surgeon: Jose Wilhelm Pathology: other (Appendix, ruptured) Condition: stable Disposition: floor Indications for Procedure: 55-year-old female presented to the emergency department with complaints of abdominal pain. On workup, she was found to have acute appendicitis. The patient did state that her pain had been going on for a few days. She complained of nausea and lack of appetite. Plan is for laparoscopic appendectomy. Risks, benefits and alternatives were provided to the patient. The patient did provide consent prior to attending the operating suite. Operative Findings: Ruptured appendicitis Description of Procedure: Patient was brought to the operating suite and placed in supine position on the operating table. Sedation was provided by anesthesia and the patient did undergo endotracheal intubation. The patient was then prepped and draped in regular sterile fashion. A supra umbilical incision was made and dissection was carried to the fascia. The fascia was incised and the abdomen was entered with a 12 mm port. Pneumoperitoneum was achieved. 2 additional ports were then placed. Both were 5 mm ports placed in the suprapubic region and left lower quadrant. The patient was then positioned appropriately. Dissection was carried and the appendix was noted to be dilated and ruptured. Reg stool was noted in the vicinity. Great care was taken to dissect the appendix from its adherence to the abdominal wall. This was done both bluntly and sharply. The appendix was noted to be significantly adhered to the surrounding structures. Small bowel was also peeled away from the appendix. The base of the appendix was then clearly visualized. A window was created between the appendix and the mesoappendix using a [place] dissector. The base of the appendix was then stapled across using a 45 mm purple load Endo ABDIRAHMAN stapling device. LigaSure device was then used to dissect the appendix from the mesoappendix. Hemostasis was noted to be maintained. The appendix was then placed in an Endo Catch bag and removed from the abdomen. Copious irrigation was placed in the right lower quadrant dissection the ruptured appendicitis material. CASIE drain was then placed and secured through one of the 5 mm port sites along the right gutter. This was secured into place using a nylon suture. The supraumbilical fascia incision site was then closed using 0 Vicryl interrupted suture using a Maxim- Caitlin device under direct visualization. Pneumoperitoneum was then relieved and all skin incisions were closed with 4-0 Vicryl subcuticular suture. The patient was awakened in the operating suite and taken to postanesthesia care unit in stable condition.
[2020-06-23] MEDS ORDERED: fentaNYL (PF) 50 MCG/ML 2 ML AMP IVP ONE ×3 (14:53→15:23)
[2020-06-23 15:11] LABS: Glucose,Whole Blood 105 mg/dL (75-99)
[2020-06-23] MEDS ORDERED: HYDROmorphone 1 MG/ML 1 ML SYRINGE IVP ONE (15:14)
[2020-06-23] MEDS ORDERED: SODIUM CHLORIDE 0.9% 1,000 ML IV ONE ×4 (15:20→17:47)
[2020-06-23] MEDS ORDERED: ONDANSETRON 4 MG/2 ML VIAL IVP ONE (15:30)
[2020-06-23] MEDS: HEPARIN SODIUM,PORCINE 5,000 UNIT/ML 1 ML VIAL SQ SCH (17:20)
--- NOTE | 2020-06-23 17:45 | P.CONS ---
History of Present Illness - Reason for Consult Consult date: 06/23/20 - Chief Complaint Abdominal pain - History of Present Illness This is a 55-year-old white female who presented to the hospital with abdominal pain starting yesterday. She presented to the emergency room yesterday but did not want to be admitted was sent home. She continued to have right lower qu adrant abdominal pain associated with nausea but no vomiting. She had decreased oral intake and decreased appetite. Serum creatinine was 2.8 upon evaluation yesterday. She underwent appendectomy, laparoscopic and was found to have ruptured appendix. At the time of examination patient complains of moderate abdominal pain. She denies vomiting, she denies chest pain or shortness of breath. She does not appear to be in distress. Review of Systems 10 systems reviewed, pertinent positive and negative findings as in HPI, no chest pain, no dizziness. Past Medical History Past Medical History: COPD, Diabetes Mellitus, Fibromyalgia, Hyperlipidemia, Hypertension Additional Past Medical History / Comment(s): DJD, Angina, pt reports having a heart attack History of Any Multi-Drug Resistant Organisms: None Reported Past Surgical History: Back Surgery, Hysterectomy, Orthopedic Surgery Additional Past Surgical History / Comment(s): (R) foot surgery x3 with pin and cadavar bone, Past Psychological History: Anxiety, Depression Smoking Status: Current every day smoker Past Alcohol Use History: Occasional Past Drug Use History: None Reported Medications and Allergies Home Medications Medication Instructions Recorded Confirmed Type Albuterol Inhaler [Ventolin Hfa 1 - 2 puff INHALATION RT-QID PRN 06/22/20 06/23/20 History Inhaler] Budesonide/Formoterol Fumarate 2 puff INHALATION RT-BID 06/22/20 06/23/20 History [Symbicort 160-4.5 Mcg Inhaler] Buprenorphine HCl/Naloxone HCl 1 film SL BID 06/22/20 06/23/20 History [Suboxone 8 mg-2 mg Sl Film] Carvedilol [Coreg] 25 mg PO TID 06/22/20 06/23/20 History Doxylamine Succinate [Unisom] 25 mg PO HS 06/22/20 06/23/20 History Ergocalciferol [Vitamin D2] 50,000 unit PO FR 06/22/20 06/23/20 History Isosorbide Mononitrate ER [Imdur] 30 mg PO HS 06/22/20 06/23/20 History Isosorbide Mononitrate ER [Imdur] 60 mg PO BID 06/22/20 06/23/20 History QUEtiapine [SEROquel] 100 mg PO HS 06/22/20 06/23/20 History Simvastatin 40 mg PO HS 06/22/20 06/23/20 History Tiotropium [place] [Spiriva 1 puff INHALATION RT-DAILY 06/22/20 06/23/20 History Respimat] amLODIPine [Norvasc] 5 mg PO BID 06/22/20 06/23/20 History hydrALAZINE HCL [Apresoline] 25 mg PO TID 06/22/20 06/23/20 History Acetaminophen-Codeine 300-30mg 1 tab PO ONCE PRN 06/23/20 06/23/20 History [Tylenol w/codeine #3] Allergies Allergy/AdvReac Type Severity Reaction Status Date / Time Sulfa (Sulfonamide Allergy Anaphylaxis Verified 06/23/20 16:29 Antibiotics) Physical Exam Vitals: Vital Signs Temp Pulse Pulse Pulse Resp BP BP 06/23/20 17:15 68 16 158/79 06/23/20 17:00 66 16 160/54 06/23/20 16:45 61 16 161/84 06/23/20 16:30 97.8 F 69 16 156/77 06/23/20 15:45 65 18 158/78 06/23/20 15:30 67 18 162/77 06/23/20 15:15 59 L 18 160/88 06/23/20 15:01 57 L 16 152/90 06/23/20 14:50 96.8 F L 59 L 16 143/91 06/23/20 12:58 77 18 158/96 06/23/20 09:32 98.1 F 81 18 151/84 Pulse Ox 06/23/20 17:15 95 06/23/20 17:00 95 06/23/20 16:45 96 06/23/20 16:30 96 06/23/20 15:45 95 06/23/20 15:30 100 06/23/20 15:15 100 06/23/20 15:01 100 06/23/20 14:50 100 06/23/20 12:58 06/23/20 09:32 96 Intake and Output 06/23/20 06/23/20 06/23/20 06:59 14:59 22:59 Intake Total 800 300 Output Total 15 430 Balance 785 -130 Intake: IV 800 300 Output: Drainage 30 Lower Abdomen 30 Urine 400 Estimated Blood Loss 15 Other: Voiding Method Toilet Weight 70.307 kg 70.307 kg Constitutional: No acute distress, conversant, pleasant Eyes: Anicteric sclerae, moist conjunctiva, no lid-lag, PERRLA ENMT: NC/AT,Oropharynx clear, no erythema, exudates Neck:Supple, FROM, no masses, or JVD, No carotid bruits; No thyromegaly Lungs: Clear to auscultation, Clear to percussion, Normal respiratory effort, no accessory muscle use Cardiovascular: Heart regular in rate and rhythm, No murmurs, gallops, or rubs no peripheral edema Abdominal: Soft , tender, nom distended, no guarding, no rebound or rigidity, Normoactive bowel sounds No hepatomegaly, No splenomegaly, No palpable mass No abdominal wall hernia noted Skin: Normal temperature, tone, texture, turgor, No induration No subcutaneous nodules, No rash, lesions, No ulcers Extremities:No digital cyanosis No clubbing, Pedal pulses intact and symmetrical Radial pulses intact and symmetrical Normal gait and station, No calf tenderness Psychiatric: Alert and oriented to person, place and time, Appropriate affect Intact judgement Neuro: Muscles Strength 5/5 in all 4 extremities, Sensation to light touch grossly present throughout, Cranial nerves II-XII grossly intact. No focal sensory deficits Results CBC & Chem 7: 06/23/20 10:03 06/23/20 10:03 Labs: Abnormal Lab Results - Last 24 Hours (Table) 06/23/20 06/23/20 06/23/20 Range/Units 10:03 10:03 15:08 WBC 11.3 H (3.8-10.6) k/uL Neutrophils # 8.8 H (1.3-7.7) k/uL BUN 19 H (7-17) mg/dL Creatinine 3.22 H (0.52-1.04) mg/dL Glucose 118 H (74-99) mg/dL POC Glucose (mg/dL) 105 H (75-99) mg/dL Assessment and Plan Plan: 1. Acute kidney injury likely associated with decreased oral intake and hypovolemia, serum creatinine 3.2, was 2.8 yesterday, baseline appears to be about 0.9, continue IV fluid resuscitation, avoid nephrotoxins, avoid NSAIDs maintain euvolemic. Obtain UA, urine protein creatinine ratio, renal ultrasound. Urine sodium/fena. Continue to monitor closely. 2. Diabetes type 2 with hyperglycemia, place on insulin sliding scale. 3. COPD without exacerbation: Oxygen and bronchodilators as indicated 4. Essential hypertension: Continue Coreg, hold Norvasc/hydralazine. 5. Coronary artery disease: Continue isosorbide mononitrate, hold statin for now. 6. Depression: Continue seroquel
[2020-06-23] MEDS: HYDROmorphone 1 MG/ML 1 ML SYRINGE IVP PRN ×2 (18:52→22:30)
[2020-06-23] MEDS: ISOSORBIDE MONONITRATE ER 30 MG TAB.ER.24H PO SCH (19:45)
[2020-06-23] MEDS: carvediloL 12.5 MG TAB PO SCH (19:45)
[2020-06-23] MEDS: ISOSORBIDE MONONITRATE ER 60 MG TAB.ER.24H PO SCH (19:45)
[2020-06-23] MEDS: PIPERACILLIN-TAZOBACTAM 3.375 GM in SODIUM CHLORIDE 0.9% 100 ML IVPB SCH (19:52)
[2020-06-23 20:38] LABS: Glucose,Whole Blood 132 mg/dL (75-99)
[2020-06-23] MEDS: INSULIN ASPART (NovoLOG) 100 UNIT/ML VIAL SQ SCH (20:44)
[2020-06-23] MEDS: QUEtiapine 100 MG TAB PO SCH (20:46)
[2020-06-23] MEDS: NON FORMULARY DRUG (Doxylamine Succinate [Unisom] 25 MG Tablet) PO SCH (20:47)
[2020-06-23 20:54] LABS: Appearance,Urine Clear (Clear); Bilirubin,Urine Negative (Negative); Blood,Urine Negative (Negative); Color,Urine Colorless; Glucose,Urine (UA) Negative (Negative); Ketones,Urine Negative (Negative); Leukocyte Esterase,Urine Negative (Negative); Nitrite,Urine Negative (Negative); Protein,Urine Negative (Negative); Specific Gravity,Urine 1.005 (1.001-1.035); Urobilinogen,Urine <2.0 mg/dL (<2.0)
[2020-06-23 21:09] LABS: Creatinine,Urine Random 12.6 mg/dL; Protein/Creatinine Ratio,Urine 1.032
[2020-06-24] MEDS: HEPARIN SODIUM,PORCINE 5,000 UNIT/ML 1 ML VIAL SQ SCH ×4 (00:56→23:40)
[2020-06-24] MEDS: HYDROmorphone 1 MG/ML 1 ML SYRINGE IVP PRN ×8 (01:13→23:44)
[2020-06-24] MEDS: PIPERACILLIN-TAZOBACTAM 3.375 GM in SODIUM CHLORIDE 0.9% 100 ML IVPB SCH ×3 (03:50→20:05)
[2020-06-24] MEDS: INSULIN ASPART (NovoLOG) 100 UNIT/ML VIAL SQ SCH ×4 (06:42→20:46)
[2020-06-24 06:44] LABS: Glucose,Whole Blood 124 mg/dL (75-99)
--- NOTE | 2020-06-24 08:39 | P.PN ---
Subjective Progress Note Date: 06/24/20 Feels much better today, no chest pain no abdominal pain, nausea no vomiting no dizziness. Objective - Vital Signs Vital signs: Vital Signs Temp 99.4 F 06/24/20 04:00 Pulse 80 06/24/20 04:00 Resp 18 06/24/20 04:00 BP 110/64 06/24/20 04:00 Pulse Ox 93 L 06/24/20 04:00 Intake & Output 06/23/20 06/24/20 06/24/20 18:59 06:59 18:59 Intake Total 1700 300 Output Total 1145 2455 Balance 555 -2155 Weight 70.307 kg Intake: IV 1100 Oral 600 300 Output: Drainage 30 30 Lower Abdomen 30 30 Urine 1100 2425 Estimated Blood Loss 15 Other: Voiding Method Toilet - Exam Constitutional: No acute distress, conversant, pleasant Eyes: Anicteric sclerae, moist conjunctiva, no lid-lag, PERRLA ENMT: NC/AT,Oropharynx clear, no erythema, exudates Neck:Supple, FROM, no masses, or JVD, No carotid bruits; No thyromegaly Lungs: Clear to auscultation, Clear to percussion, Normal respiratory effort, no accessory muscle use Cardiovascular: Heart regular in rate and rhythm, No murmurs, gallops, or rubs no peripheral edema Abdominal: Soft Nontender, nom distended, no guarding, no rebound or rigidity, CASIE drainage in place Skin: Normal temperature, tone, texture, turgor, No induration No subcutaneous nodules, No rash, lesions, No ulcers Extremities:No digital cyanosis No clubbing, Pedal pulses intact and s ymmetrical Radial pulses intact and symmetrical Normal gait and station, No calf tenderness Psychiatric: Alert and oriented to person, place and time, Appropriate affect Intact judgement Neuro: Muscles Strength 5/5 in all 4 extremities, Sensation to light touch grossly present throughout, Cranial nerves II-XII grossly intact. No focal sensory deficits - Labs CBC & Chem 7: 06/23/20 10:03 06/23/20 10:03 Labs: Abnormal Lab Results - Last 24 Hours (Table) 06/23/20 06/23/20 06/23/20 Range/Units 10:03 10:03 15:08 WBC 11.3 H (3.8-10.6) k/uL Neutrophils # 8.8 H (1.3-7.7) k/uL BUN 19 H (7-17) mg/dL Creatinine 3.22 H (0.52-1.04) mg/dL Glucose 118 H (74-99) mg/dL POC Glucose (mg/dL) 105 H (75-99) mg/dL 06/23/20 06/24/20 Range/Units 20:31 06:40 WBC (3.8-10.6) k/uL Neutrophils # (1.3-7.7) k/uL BUN (7-17) mg/dL Creatinine (0.52-1.04) mg/dL Glucose (74-99) mg/dL POC Glucose (mg/dL) 132 H 124 H (75-99) mg/dL Assessment and Plan Plan: 1. Acute kidney injury likely associated with decreased oral intake and hypovolemia, serum creatinine 3.2, was 2.8 06/22/2020, baseline appears to be about 0.9, continue IV fluid resuscitation, avoid nephrotoxins, avoid NSAIDs maintain euvolemic. Pending labs today, pending renal ultrasound. 2. Diabetes type 2 with hyperglycemia, continue on insulin sliding scale. 3. COPD without exacerbation: Oxygen and bronchodilators as indicated 4. Essential hypertension: Continue Coreg, hold Norvasc/hydralazine. 5. Coronary artery disease: Continue isosorbide mononitrate, hold statin for now. 6. Depression: Continue seroquel 7. Proteinuria: PCR 1, likely associated with diabetes, will need RAAS inhibitor once renal function has normalized Disposition: Home in 1-2 days once renal function is better.
--- NOTE | 2020-06-24 09:43 | P.PN ---
Subjective Progress Note Date: 06/24/20 Patient seen and examined at bedside. States her pain has improved since last night. Denies nausea or vomiting. Tolerating clear liquid diet. CASIE drain in place with serosanguineous output. Objective - Vital Signs Vital signs: Vital Signs Temp 99.4 F 06/24/20 04:00 Pulse 80 06/24/20 04:00 Resp 18 06/24/20 04:00 BP 110/64 06/24/20 04:00 Pulse Ox 93 L 06/24/20 04:00 Intake & Output 06/23/20 06/24/20 06/24/20 18:59 06:59 18:59 Intake Total 1700 300 Output Total 1145 2455 Balance 555 -2155 Weight 70.307 kg Intake: IV 1100 Oral 600 300 Output: Drainage 30 30 Lower Abdomen 30 30 Urine 1100 2425 Estimated Blood Loss 15 Other: Voiding Method Toilet - Constitutional General appearance: Present: cooperative, no acute distress - Respiratory Details: No difficulty with respiration - Gastrointestinal Gastrointestinal Comment(s): Soft, appropriate tenderness, nondistended, no rebound, no guarding - Psychiatric Psychiatric: Present: A&O x's 3 - Labs CBC & Chem 7: 06/23/20 10:03 06/23/20 10:03 Labs: Abnormal Lab Results - Last 24 Hours (Table) 06/23/20 06/23/20 06/23/20 Range/Units 10:03 10:03 15:08 WBC 11.3 H (3.8-10.6) k/uL Neutrophils # 8.8 H (1.3-7.7) k/uL BUN 19 H (7-17) mg/dL Creatinine 3.22 H (0.52-1.04) mg/dL Glucose 118 H (74-99) mg/dL POC Glucose (mg/dL) 105 H (75-99) mg/dL 06/23/20 06/24/20 Range/Units 20:31 06:40 WBC (3.8-10.6) k/uL Neutrophils # (1.3-7.7) k/uL BUN (7-17) mg/dL Creatinine (0.52-1.04) mg/dL Glucose (74-99) mg/dL POC Glucose (mg/dL) 132 H 124 H (75-99) mg/dL Assessment and Plan Plan: Postoperative day #1, laparoscopic appendectomy for acute ruptured appendicitis - Continue CASIE drain - Continue IV antibiotics - Nephrology consult pending for acute kidney injury - Continue medical recommendations, these are appreciated - Continue incentive spirometry - Increase activity
[2020-06-24] MEDS: carvediloL 12.5 MG TAB PO SCH ×3 (09:45→23:00)
[2020-06-24] MEDS: ISOSORBIDE MONONITRATE ER 60 MG TAB.ER.24H PO SCH ×2 (09:45→20:48)
[2020-06-24] MEDS: DOCUSATE 100 MG CAP PO SCH ×2 (09:53→20:48)
[2020-06-24 11:05] LABS: Basophils % (A) 0 %; Eosinophils # (A) 0.1 k/uL (0-0.7); Eosinophils % (A) 1 %; HCT 34.2 % (34.0-46.0); HGB 11.7 gm/dL (11.4-16.0); Lymphocytes # (A) 1.9 k/uL (1.0-4.8); Lymphocytes % (A) 20 %; MCH 29.9 pg (25.0-35.0); MCHC 34.3 g/dL (31.0-37.0); MCV 87.3 fL (80.0-100.0); Mean Platelet Volume 7.3; Monocytes # (A) 0.5 k/uL (0-1.0); Monocytes % (A) 6 %; Neutrophils # (A) 6.6 k/uL (1.3-7.7); Neutrophils % (A) 72 %; Platelet Count 172 k/uL (150-450); RBC 3.92 m/uL (3.80-5.40); RDW 13.5 % (11.5-15.5); WBC 9.1 k/uL (3.8-10.6)
[2020-06-24 11:07] LABS: Albumin 3.1 g/dL (3.5-5.0); Calcium 8.2 mg/dL (8.4-10.2); Potassium 3.6 mmol/L (3.5-5.1); Total Protein 5.6 g/dL (6.3-8.2)
--- NOTE | 2020-06-24 11:48 | US ---
EXAMINATION TYPE: US kidneys/renal and bladder DATE OF EXAM: 06/24/2020 COMPARISON: CT abdomen pelvis 06/23/2020 CLINICAL HISTORY: Acute kidney injury. Appendix rupture, surgical removal 2 days ago, abn renal labs EXAM MEASUREMENTS: Right Kidney: 11.0 x 4.6 x 4.7 cm Left Kidney: 11.5 x 4.0 x 4.2 cm Right Kidney: Normal. Left Kidney: Normal. Bladder: Nonvisualized due to bandage from overlying incision. There is no evidence for hydronephrosis, nephrolithiasis, or renal mass. IMPRESSION: 1. Normal kidneys with no hydronephrosis bilaterally. 2. Nonvisualization of the urinary bladder due to overlying bandage.
[2020-06-24 12:21] LABS: Glucose,Whole Blood 254 mg/dL (75-99)
[2020-06-24] MEDS: HYDROcodone/APAP 5-325MG 1 EACH TAB PO PRN ×2 (12:26→18:26)
[2020-06-24 14:49] VITALS: BMI 25.7
--- NOTE | 2020-06-24 16:01 | P.NPCON ---
History of Present Illness - Reason for Consult Consult date: 06/24/20 acute renal failure - Chief Complaint Acute kidney injury - History of Present Illness 55-year-old white female coming to the hospital with abdominal pain. She had appendicitis status post surgery. Nephrology was consulted for acute kidney injury. Baseline creatinine 0.9 MG per DL in September 2019. She presented with a creatinine of 2.8 MG per DL, increased to 3.2 MG per DL yesterday and back to 2.2 MG per DL today. Good urine output, urine analysis [place]. She takes Motrins daily for the last few years. She had poor oral intake associated with nausea vomiting. No recent contrast studies. Review of Systems Constitutional: Reports as per HPI Past Medical History Past Medical History: COPD, Diabetes Mellitus, Fibromyalgia, Hyperlipidemia, Hypertension Additional Past Medical History / Comment(s): DJD, Angina, pt reports having a heart attack History of Any Multi-Drug Resistant Organisms: None Reported Past Surgical History: Back Surgery, Hysterectomy, Orthopedic Surgery Additional Past Surgical History / Comment(s): (R) foot surgery x3 with pin and cadavar bone, Past Psychological History: Anxiety, Depression Smoking Status: Current every day smoker Past Alcohol Use History: Occasional Past Drug Use History: None Reported Medications and Allergies Home Medications Medication Instructions Recorded Confirmed Type Albuterol Inhaler [Ventolin Hfa 1 - 2 puff INHALATION RT-QID PRN 06/22/20 06/23/20 History Inhaler] Budesonide/Formoterol Fumarate 2 puff INHALATION RT-BID 06/22/20 06/23/20 History [Symbicort 160-4.5 Mcg Inhaler] Buprenorphine HCl/Naloxone HCl 1 film SL BID 06/22/20 06/23/20 History [Suboxone 8 mg-2 mg Sl Film] Carvedilol [Coreg] 25 mg PO TID 06/22/20 06/23/20 History Doxylamine Succinate [Unisom] 25 mg PO HS 06/22/20 06/23/20 History Ergocalciferol [Vitamin D2] 50,000 unit PO FR 06/22/20 06/23/20 History Isosorbide Mononitrate ER [Imdur] 30 mg PO HS 06/22/20 06/23/20 History Isosorbide Mononitrate ER [Imdur] 60 mg PO BID 06/22/20 06/23/20 History QUEtiapine [SEROquel] 100 mg PO HS 06/22/20 06/23/20 History Simvastatin 40 mg PO HS 06/22/20 06/23/20 History Tiotropium [place] [Spiriva 1 puff INHALATION RT-DAILY 06/22/20 06/23/20 History Respimat] amLODIPine [Norvasc] 5 mg PO BID 06/22/20 06/23/20 History hydrALAZINE HCL [Apresoline] 25 mg PO TID 06/22/20 06/23/20 History Acetaminophen-Codeine 300-30mg 1 tab PO ONCE PRN 06/23/20 06/23/20 History [Tylenol w/codeine #3] Allergies Allergy/AdvReac Type Severity Reaction Status Date / Time Sulfa (Sulfonamide Allergy Anaphylaxis Verified 06/23/20 16:29 Antibiotics) Physical Exam Vitals: Vital Signs Temp Pulse Resp BP Pulse Ox 06/24/20 12:15 82 20 124/73 93 L 06/24/20 08:50 98.5 F 82 20 116/66 95 06/24/20 04:00 99.4 F 80 18 110/64 93 L 06/24/20 01:30 99.8 F H 84 16 121/70 94 L 06/23/20 21:30 87 143/80 93 L 06/23/20 20:27 98.8 F 84 16 150/88 93 L 06/23/20 20:11 89 18 163/88 93 L 06/23/20 19:44 94 24 188/99 94 L 06/23/20 19:20 93 22 189/115 95 06/23/20 18:13 75 16 152/84 94 L 06/23/20 17:45 70 16 153/77 95 06/23/20 17:15 68 16 158/79 95 06/23/20 17:00 66 16 160/54 95 06/23/20 16:45 61 16 161/84 96 06/23/20 16:30 97.8 F 69 16 156/77 96 Intake and Output 06/24/20 06/24/20 06/24/20 06:59 14:59 22:59 Output Total 480 240 Balance -480 -240 Output: Drainage 30 20 Lower Abdomen 30 20 Urine 450 220 Other: # Voids 1 Weight 70.307 kg No acute distress S1-S2 heard Lungs clear Abdomen distended Trace edema Results - Lab Results Most recent lab results Calcium 8.2 mg/dL (8.4-10.2) L 06/24/20 10:36 Urine Creatinine 12.6 mg/dL 06/23/20 19:50 Urine Total Protein 13 mg/dL 06/23/20 19:50 06/24/20 10:36 06/24/20 10:36 Assessment and Plan Assessment: #1 acute kidney injury prerenal process progressing to ATN. -Complement of NSAID use #2 acute appendicitis status post surgery #3 hypertension, essential #4 low normal blood pressures Plan: #1 renal function improving, continue with IV fluids. #2 bladder scan to rule out urinary retention #3 strict ins and outs #4 avoid nephrotoxic agents and hypotensive episodes
[2020-06-24] MEDS ORDERED: ALBUTEROL NEBULIZED 2.5 MG/3 ML INHALATION PRN (16:18)
[2020-06-24] MEDS: SODIUM CHLORIDE 0.9% 1,000 ML IV SCH (16:22)
[2020-06-24] MEDS: SYMBICORT 160-4.5 MCG INHALER INHALATION SCH ×2 (17:11→20:32)
[2020-06-24 17:41] LABS: Glucose,Whole Blood 109 mg/dL (75-99)
[2020-06-24 20:44] LABS: Glucose,Whole Blood 114 mg/dL (75-99)
[2020-06-24] MEDS: NON FORMULARY DRUG (Doxylamine Succinate [Unisom] 25 MG Tablet) PO SCH (20:46)
[2020-06-24] MEDS: QUEtiapine 100 MG TAB PO SCH (20:48)
[2020-06-24] MEDS: ISOSORBIDE MONONITRATE ER 30 MG TAB.ER.24H PO SCH (20:48)
[2020-06-25] MEDS: HYDROcodone/APAP 5-325MG 1 EACH TAB PO PRN (02:05)
[2020-06-25] MEDS: HYDROmorphone 1 MG/ML 1 ML SYRINGE IVP PRN ×2 (02:14→05:25)
[2020-06-25] MEDS: PIPERACILLIN-TAZOBACTAM 3.375 GM in SODIUM CHLORIDE 0.9% 100 ML IVPB SCH ×2 (03:43→12:42)
[2020-06-25 06:56] LABS: Glucose,Whole Blood 113 mg/dL (75-99)
[2020-06-25] MEDS: INSULIN ASPART (NovoLOG) 100 UNIT/ML VIAL SQ SCH ×2 (07:30→12:59)
--- NOTE | 2020-06-25 07:51 | P.PN ---
Subjective Progress Note Date: 06/25/20 [place], no vomiting no dizziness no shortness of breath. Abdominal pain is much better. Positive for flatus no BM yet. Objective - Vital Signs Vital signs: Vital Signs Temp 97.7 F 06/25/20 02:00 Pulse 75 06/25/20 02:00 Resp 18 06/25/20 02:00 BP 134/80 06/25/20 02:00 Pulse Ox 94 L 06/25/20 02:00 Intake & Output 06/24/20 06/25/20 06/25/20 18:59 06:59 18:59 Intake Total 1390 474 Output Total 280 400 Balance 1110 74 Weight 70.307 kg Intake: Intake, IV Titration 850 Amount Piperacillin-Tazobactam 3 100 .375 gm In Sodium Chloride 0.9% 100 ml @ 25 mls/hr IVPB Q8H [facility] Rx#: [id number] Sodium Chloride 0.9% 1, 750 000 ml @ 75 mls/hr IV . [id number] [facility] Rx#:[id number] Oral 540 474 Output: Drainage 60 0 Lower Abdomen 60 0 Urine 220 400 Other: Voiding Method Toilet # Voids 4 - Exam Constitutional: No acute distress, conversant, pleasant Eyes: Anicteric sclerae, moist conjunctiva, no lid-lag, PERRLA ENMT: NC/AT,Oropharynx clear, no erythema, exudates Neck:Supple, FROM, no masses, or JVD, No carotid bruits; No thyromegaly Lungs: Clear to auscultation, Clear to percussion, Normal respiratory effort, no accessory muscle use Cardiovascular: Heart regular in rate and rhythm, No murmurs, gallops, or rubs no peripheral edema Abdominal: Soft Nontender, nom distended, no guarding, no rebound or rigidity, CASIE drainage in place Skin: Normal temperature, tone, texture, turgor, No induration Extremities:No digital cyanosis No clubbing, Pedal pulses intact and symmetrical Radial pulses intact and symmetrical Normal gait and station, No calf tenderness Psychiatric: Alert and oriented to person, place and time, Appropriate affect Intact judgement Neuro: Muscles Strength 5/5 in all 4 extremities, Sensation to light touch grossly present throughout, Cranial nerves II-XII grossly intact. No focal sensory deficits - Labs CBC & Chem 7: 06/24/20 10:36 06/24/20 10:36 Labs: Abnormal Lab Results - Last 24 Hours (Table) 06/24/20 06/24/20 06/24/20 Range/Units 10:36 12:14 17:37 Chloride 108 H (98-107) mmol/L Creatinine 2.22 H (0.52-1.04) mg/dL Glucose 132 H (74-99) mg/dL POC Glucose (mg/dL) 254 H 109 H (75-99) mg/dL Calcium 8.2 L (8.4-10.2) mg/dL Total Protein 5.6 L (6.3-8.2) g/dL Albumin 3.1 L (3.5-5.0) g/dL 06/24/20 06/25/20 Range/Units 20:42 06:54 Chloride (98-107) mmol/L Creatinine (0.52-1.04) mg/dL Glucose (74-99) mg/dL POC Glucose (mg/dL) 114 H 113 H (75-99) mg/dL Calcium (8.4-10.2) mg/dL Total Protein (6.3-8.2) g/dL Albumin (3.5-5.0) g/dL Assessment and Plan Plan: 1. Acute kidney injury likely associated with decreased oral intake and hypovolemia, serum creatinine 3.2, was 2.8 06/22/2020, baseline appears to be about 0.9, continue IV fluid resuscitation, avoid nephrotoxins, avoid NSAIDs maintain euvolemic. Pending labs today, unremarkable renal ultrasound. Serum creatinine 2.2 06/24/2020. nephrology following. 2. Diabetes type 2 with hyperglycemia, continue on insulin sliding scale. 3. COPD without exacerbation: Oxygen and bronchodilators as indicated 4. Essential hypertension: Continue Coreg, hold Norvasc/hydralazine. 5. Coronary artery disease: Continue isosorbide mononitrate, hold statin for now. 6. Depression: Continue seroquel 7. Proteinuria: PCR 1, likely associated with diabetes, will need RAAS inhibitor once renal function has normalized 8. Ruptured appendix status post appendectomy: Surgery following, clinically improving. Disposition: Home today or tomorrow once renal function is better.
[2020-06-25] MEDS: oxyCODONE-APAP 7.5-325MG 1 EACH TAB PO PRN ×2 (08:54→13:05)
[2020-06-25 09:00] LABS: Basophils % (A) 0 %; Eosinophils # (A) 0.2 k/uL (0-0.7); Eosinophils % (A) 3 %; HCT 32.4 % (34.0-46.0); HGB 10.6 gm/dL (11.4-16.0); Lymphocytes # (A) 1.1 k/uL (1.0-4.8); Lymphocytes % (A) 18 %; MCH 29.1 pg (25.0-35.0); MCHC 32.8 g/dL (31.0-37.0); MCV 88.5 fL (80.0-100.0); Mean Platelet Volume 7.2; Monocytes # (A) 0.4 k/uL (0-1.0); Monocytes % (A) 6 %; Neutrophils # (A) 4.5 k/uL (1.3-7.7); Neutrophils % (A) 72 %; Platelet Count 176 k/uL (150-450); RBC 3.66 m/uL (3.80-5.40); RDW 13.8 % (11.5-15.5); WBC 6.2 k/uL (3.8-10.6)
[2020-06-25] MEDS ORDERED: PANTOPRAZOLE 40 MG TABLET PO SCH (09:03)
[2020-06-25] MEDS: HEPARIN SODIUM,PORCINE 5,000 UNIT/ML 1 ML VIAL SQ SCH (09:08)
[2020-06-25] MEDS: ISOSORBIDE MONONITRATE ER 60 MG TAB.ER.24H PO SCH (09:09)
[2020-06-25] MEDS: carvediloL 12.5 MG TAB PO SCH (09:10)
[2020-06-25 09:11] LABS: Calcium 8.4 mg/dL (8.4-10.2); Potassium 3.7 mmol/L (3.5-5.1); Total Bilirubin 0.8 mg/dL (0.2-1.3); Total Protein 5.4 g/dL (6.3-8.2)
[2020-06-25] MEDS: DOCUSATE 100 MG CAP PO SCH (09:12)
[2020-06-25] MEDS: SYMBICORT 160-4.5 MCG INHALER INHALATION SCH (09:12)
[2020-06-25 09:37] VITALS: BP 150/81; PULSE 73; RESP 20; TEMP 97.8
[2020-06-25 12:52] LABS: Glucose,Whole Blood 149 mg/dL (75-99)
--- NOTE | 2020-06-25 16:00 | P.PN ---
Subjective Progress Note Date: 06/25/20 Follow-up for acute kidney injury. Feels better today. No nausea vomiting diarrhea. Good urine output. Objective - Vital Signs Vital signs: Vital Signs Temp 97.8 F 06/25/20 09:06 Pulse 73 06/25/20 09:06 Resp 20 06/25/20 09:06 BP 150/81 06/25/20 09:06 Pulse Ox 94 L 06/25/20 09:06 Intake & Output 06/24/20 06/25/20 06/25/20 18:59 06:59 18:59 Intake Total 1390 474 800 Output Total 280 400 Balance 1110 74 800 Weight 70.307 kg Intake: Intake, IV Titration 850 Amount Piperacillin-Tazobactam 3 100 .375 gm In Sodium Chloride 0.9% 100 ml @ 25 mls/hr IVPB Q8H [facility] Rx#: [id number] Sodium Chloride 0.9% 1, 750 000 ml @ 75 mls/hr IV . [id number] [facility] Rx#:[id number] Oral 540 474 800 Output: Drainage 60 0 Lower Abdomen 60 0 Urine 220 400 Other: Voiding Method Toilet Toilet # Voids 4 2 - Exam No acute distress S1-S2 heard Lungs clear No edema - Labs CBC & Chem 7: 06/25/20 08:40 06/25/20 08:40 Labs: Abnormal Lab Results - Last 24 Hours (Table) 06/24/20 06/24/20 06/25/20 Range/Units 17:37 20:42 06:54 RBC (3.80-5.40) m/uL Hgb (11.4-16.0) gm/dL Hct (34.0-46.0) % Sodium (137-145) mmol/L Chloride (98-107) mmol/L Creatinine (0.52-1.04) mg/dL Glucose (74-99) mg/dL POC Glucose (mg/dL) 109 H 114 H 113 H (75-99) mg/dL Total Protein (6.3-8.2) g/dL Albumin (3.5-5.0) g/dL 06/25/20 06/25/20 06/25/20 Range/Units 08:40 08:40 12:49 RBC 3.66 L (3.80-5.40) m/uL Hgb 10.6 L (11.4-16.0) gm/dL Hct 32.4 L (34.0-46.0) % Sodium 136 L (137-145) mmol/L Chloride 108 H (98-107) mmol/L Creatinine 1.53 H (0.52-1.04) mg/dL Glucose 187 H (74-99) mg/dL POC Glucose (mg/dL) 149 H (75-99) mg/dL Total Protein 5.4 L (6.3-8.2) g/dL Albumin 3.0 L (3.5-5.0) g/dL Assessment and Plan Assessment: #1 acute kidney injury prerenal process progressing to ATN. -Component of NSAID use #2 acute appendicitis status post surgery #3 hypertension, essential #4 low normal blood pressures Plan: #1 renal function improving, close to baseline. #2 advised to avoid NSAIDs #3 stable from nephrology for discharge to be followed up in the office in 2-3 weeks
--- NOTE | 2020-06-25 16:03 | P.DS ---
Providers Date of admission: 06/24/20 11:49 Attending physician: Jose Wilhelm DO Consults: 06/23/20 12:40 Consult Physician Urgent Consulting Provider: Fermin Montemayor Consult Reason/Comments: Medical management/renal failure Do you want consulting provider notified?: Yes 06/23/20 12:41 Consult Physician Urgent Consulting Provider: Kaela Kay Consult Reason/Comments: Renal failure Do you want consulting provider notified?: Yes Primary care physician: [facility] Course: 55-year-old female presented to the emergency department with complaints of abdominal pain. On workup, she was found to have acute appendicitis. She was also found to have acute kidney injury. Patient did undergo laparoscopic appendectomy and was followed by medicine along with nephrology during her admission. She improved after surgery and her creatinine levels were also improving. She was cleared for discharge by the medicine team and surgically stable for discharge. Procedures: Laparoscopic appendectomy Patient Condition at Discharge: Fair Plan - Discharge Summary New Discharge Prescriptions: New Amoxicillin/Potassium Clav [Augmentin 500-125 Tablet] 1 tab PO Q12HR 7 Days #14 tab oxyCODONE HCL/ACETAMINOPHEN [Percocet 10-325 mg] 1 tab PO Q6HR PRN 3 Days #12 tab PRN Reason: Pain Continue amLODIPine [Norvasc] 5 mg PO BID Tiotropium [place] [Spiriva Respimat] 1 puff INHALATION RT-DAILY Simvastatin 40 mg PO HS Ergocalciferol [Vitamin D2 (DRISDOL)] 50,000 unit PO FR Albuterol Inhaler [Ventolin Hfa Inhaler] 1 - 2 puff INHALATION RT-QID PRN PRN Reason: Shortness Of Breath QUEtiapine [SEROquel] 100 mg PO HS Isosorbide Mononitrate ER [Imdur] 30 mg PO HS Doxylamine Succinate [Unisom] 25 mg PO HS hydrALAZINE HCL [Apresoline] 25 mg PO TID Isosorbide Mononitrate ER [Imdur] 60 mg PO BID Carvedilol [Coreg] 25 mg PO TID Buprenorphine HCl/Naloxone HCl [Suboxone 8 mg-2 mg Sl Film] 1 film SL BID Budesonide/Formoterol Fumarate [Symbicort 160-4.5 Mcg Inhaler] 2 puff INHALATION RT-BID Discontinued Acetaminophen-Codeine 300-30mg [Tylenol w/codeine #3] 1 tab PO ONCE PRN PRN Reason: Pain Discharge Medication List Albuterol Inhaler [Ventolin Hfa Inhaler] 1 - 2 puff INHALATION RT-QID PRN 06/22/20 [History] Budesonide/Formoterol Fumarate [Symbicort 160-4.5 Mcg Inhaler] 2 puff INHALATION RT-BID 06/22/20 [History] Buprenorphine HCl/Naloxone HCl [Suboxone 8 mg-2 mg Sl Film] 1 film SL BID 06/22/20 [History] Carvedilol [Coreg] 25 mg PO TID 06/22/20 [History] Doxylamine Succinate [Unisom] 25 mg PO HS 06/22/20 [History] Ergocalciferol [Vitamin D2 (DRISDOL)] 50,000 unit PO FR 06/22/20 [History] Isosorbide Mononitrate ER [Imdur] 30 mg PO HS 06/22/20 [History] Isosorbide Mononitrate ER [Imdur] 60 mg PO BID 06/22/20 [History] QUEtiapine [SEROquel] 100 mg PO HS 06/22/20 [History] Simvastatin 40 mg PO HS 06/22/20 [History] Tiotropium [place] [Spiriva Respimat] 1 puff INHALATION RT-DAILY 06/22/20 [History] amLODIPine [Norvasc] 5 mg PO BID 06/22/20 [History] hydrALAZINE HCL [Apresoline] 25 mg PO TID 06/22/20 [History] Amoxicillin/Potassium Clav [Augmentin 500-125 Tablet] 1 tab PO Q12HR 7 Days #14 tab 06/25/20 [Rx] oxyCODONE HCL/ACETAMINOPHEN [Percocet 10-325 mg] 1 tab PO Q6HR PRN 3 Days #12 tab 06/25/20 [Rx] Follow up Appointment(s)/Referral(s): Diego Beltran MD [Primary Care Provider] - 1-2 days Matthias Degroot DO [STAFF PHYSICIAN] - 1 Week (follow up in 2 weeks) Jose Wilhelm DO [Doctor of Osteopathic Medicine] - 10 Days Patient Instructions/Handouts: Laparoscopic Appendectomy (DC) Activity/Diet/Wound Care/Special Instructions: Okay to shower Do not scrub on incisions Continue soft diet Take antibiotics as prescribed Call for recheck appt a week from Saturday (Jul 04) with Dr Wilhelm. Please call sooner if problems or concerns ...ie fever, redness or unusual foul smelling discharge from incisional sites, pain or swelling in lower extremities, inability to keep food/fluids down, increased pain that is not relieved by pain meds, any problems or concerns. Recheck appt with Dr. Degroot in two weeks. Please call for appt. Discharge Disposition: HOME SELF-CARE
== END 2020-06-25 16:56 | disposition home or self-care (01) | DRG 338 ==
LOC: EC 09:30 → 6PED 13:23 → OBSVTOIN 06-24 11:49
PROVIDERS: ADMIT Surgery; ATTEND Surgery
PROC: 0DTJ4ZZ Resection of Appendix, Percutaneous Endoscopic Approach (ICD-10-PCS; principal; 2020-06-23 13:17)
DX: K35.32 Acute appendicitis with perforation, localized peritonitis, and gangrene, without abscess (principal); N17.0 Acute kidney failure with tubular necrosis; E11.65 Type 2 diabetes mellitus with hyperglycemia; J44.9 Chronic obstructive pulmonary disease, unspecified; E86.1 Hypovolemia; M79.7 Fibromyalgia; E78.5 Hyperlipidemia, unspecified; I10 Essential (primary) hypertension; I25.2 Old myocardial infarction; F32.9 Major depressive disorder, single episode, unspecified; F41.9 Anxiety disorder, unspecified; F17.200 Nicotine dependence, unspecified, uncomplicated; M19.90 Unspecified osteoarthritis, unspecified site; Z79.51 Long term (current) use of inhaled steroids; Z79.899 Other long term (current) drug therapy; Z87.42 Personal history of other diseases of the female genital tract; Z90.710 Acquired absence of both cervix and uterus; Z87.39 Personal history of other diseases of the musculoskeletal system and connective tissue; Z98.890 Other specified postprocedural states; Z88.2 Allergy status to sulfonamides
CPT/HCPCS: 36415; 74176; 76770; 80053; 81003; 82150; 82570; 83605; 83690; 84156; 84300; 85025; 94640; 96365; 96375; 99285